=== PATIENT | female | born 1960 | race Caucasian/White ===

== ENCOUNTER → 2023-12-17 18:24 | Outpatient (REF) | payer OTHER, SELFPAY | LOC: RAD 18:24 | PROVIDERS: ATTENDING PHYSICIAN Physician Assistant | DX: M25.512 Pain in left shoulder (principal); M25.612 Stiffness of left shoulder, not elsewhere classified; R53.1 Weakness | CPT/HCPCS: 73030 ==

== ENCOUNTER → 2024-05-05 10:38 | Outpatient (REF) | payer OTHER, SELFPAY | LOC: HWRAD 10:38 | PROVIDERS: ATTENDING PHYSICIAN Nurse Practitioner Family; FAMILY PHYSICIAN Family Medicine | DX: R74.8 Abnormal levels of other serum enzymes (principal) | CPT/HCPCS: 76700 ==

== ENCOUNTER → 2024-05-29 10:55 | Outpatient (REF) | payer OTHER, SELFPAY | LOC: RCS 10:55 | PROVIDERS: ATTENDING PHYSICIAN Nurse Practitioner Family; FAMILY PHYSICIAN Family Medicine | DX: R00.2 Palpitations (principal) | CPT/HCPCS: 93225; 93226 ==

== ENCOUNTER → 2024-07-14 16:00 | Outpatient (REF) | payer OTHER, SELFPAY | LOC: RCS 16:00 | PROVIDERS: ATTENDING PHYSICIAN Internal Medicine Cardiovascular Disease; FAMILY PHYSICIAN Family Medicine | DX: I48.91 Unspecified atrial fibrillation (principal) | CPT/HCPCS: 93306 ==